=== PATIENT | female | born 1975 | race Caucasian/White ===

== ENCOUNTER 2019-01-20 11:40 | Emergency (ER) | payer OTHER ==
[2019-01-20 12:54] VITALS: BP 130/78
--- NOTE | 2019-01-20 13:32 | ED ---
Upper Extremity Pain - HPI Summary HPI Summary: 43 yr old female with the complaint of right shoulder pain. Onset of pain this morning at 930 am when she was at work lifting a heavy cabinet. She has pain over the lateral and posterior shoulder. No weakness or numbness. No other complaints. The patient has pain in the right shoulder worse with moving arm in flexion at the shoulder. Pain is moderate. - History of Current Complaint Chief Complaint: UCUpperExtremity Stated Complaint: RIGHT SHOULDER ARM INJURY WC Time Seen by Provider: 01/20/19 12:50 Hx Last Menstrual Period: 12/17/18 - Allergies/Home Medications Allergies/Adverse Reactions: Allergies Allergy/AdvReac Type Severity Reaction Status Date / Time No Known Allergies Allergy Verified 01/20/19 12:48 Home Medications: Home Medications NK [No Home Medications Reported] 01/20/19 [History Confirmed 01/20/19] PMH/Surg Hx/FS Hx/Imm Hx - Surgical History Surgery Procedure, Year, and Place: fistula. tonsilectomy. tubal ligation Infectious Disease History: No Infectious Disease History: Denies: Traveled Outside the [place] in Last 30 Days - Family History Known Family History: Positive: None - Social History Occupation: Employed Full-time Alcohol Use: None Substance Use Type: Reports: None Smoking Status (MU): Never Smoked Tobacco Review of Systems Constitutional: Negative Positive: Other - right shoulder pain All Other Systems Reviewed And Are Negative: Yes Physical Exam Triage Information Reviewed: Yes Vital Signs On Initial Exam: Initial Vitals Temp Pulse Resp BP Pulse Ox 97.7 F 63 18 130/78 100 01/20/19 12:48 01/20/19 12:48 01/20/19 12:48 01/20/19 12:48 01/20/19 12:48 Vital Signs Reviewed: Yes Appearance: Positive: Well-Appearing, No Pain Distress Skin: Positive: Warm, Skin Color Reflects Adequate Perfusion Head/Face: Positive: Normal Head/Face Inspection Eyes: Positive: EOMI ENT: Positive: Normal ENT inspection Neck: Positive: Nontender Respiratory/Lung Sounds: Positive: Clear to Auscultation, Breath Sounds Present Cardiovascular: Positive: RRR, Pulses are Symmetrical in both Upper and Lower Extremities. Negative: Murmur Abdomen Description: Negative: Distended Musculoskeletal: Positive: Other - right shoulder without deformity, no STS. She has tenderness over the acromium, and over the right supraspinatus muscle posteriorly. Pain is worse with anterior flexion at the shoulder. Neuro vasc intact right arm. Neurological: Positive: Sensory/Motor Intact, Alert, Oriented to Person Place, Time, CN Intact II-III Psychiatric: Positive: Normal Diagnostics - Vital Signs Vital Signs Temp Pulse Resp BP Pulse Ox 01/20/19 12:48 97.7 F 63 18 130/78 100 - Laboratory Lab Statement: Any lab studies that have been ordered have been reviewed, and results considered in the medical decision making process. - Radiology right shoulder Radiology Interpretation Completed By: Radiologist - nad Course/Dx - Course Course Of Treatment: 43 yr old with right shoulder pain. - Diagnoses Provider Diagnoses: Rotator cuff injury Discharge ED - Sign-Out/Discharge Documenting (check all that apply): Patient Departure All imaging exams completed and their final reports reviewed: Yes - Discharge Plan Condition: Good Disposition: HOME Patient Education Materials: Rotator Cuff Injury (ED) Referrals: Gi Alex DO [Primary Care Provider] - 2 Days Hugo Ashraf MD [Medical Doctor] - 2 Days - Billing Disposition and Condition Condition: GOOD Disposition: Home
== END 2019-01-20 14:15 | disposition home or self-care (01) ==
LOC: UCCORT 11:40
DX: S46.001A Unspecified injury of muscle(s) and tendon(s) of the rotator cuff of right shoulder, initial encounter (principal); X50.0XXA Overexertion from strenuous movement or load, initial encounter; Y92.9 Unspecified place or not applicable
CPT/HCPCS: 99202; G0463